=== PATIENT | male | born 1970 | race American Indian/Alaskan Native ===

== ENCOUNTER 2018-08-15 18:24 | Emergency (ER) | payer OTHER ==
[2018-08-15] MEDS ORDERED: ASPIRIN PO ONE ×2 (18:54→19:48)
[2018-08-15 19:13] LABS: Basophils % (Auto) 0.3 % (0.0-1.8); Hematocrit 40.7 % (35.5-45.6); Hemoglobin 13.9 gm/dl (11.8-15.2); Lymphocytes # (Auto) 2.5 K/mm3 (1.2-5.4); Lymphocytes % (Auto) 16.6 % (13.4-35.0); Mean Corpuscular HGB Conc 34 % (32-34); Mean Corpuscular Volume 81 fl (84-94); Platelet Count 359 K/mm3 (140-440); Red Blood Count 5.04 M/mm3 (3.65-5.03); Red Cell Distribution Width 13.9 % (13.2-15.2)
[2018-08-15] MEDS ORDERED: NORCO 5/325 PO ONE (19:48)
[2018-08-15 20:00] LABS: BUN/Creatinine Ratio 9; Blood Urea Nitrogen 8 mg/dL (9-20); Calcium 8.6 mg/dL (8.4-10.2); Hemolysis Index 75
[2018-08-15 20:12] LABS: Bilirubin,Urine NEG (Negative); Blood,Urine MOD (Negative); Color,Urine Yellow (Yellow); Mucus,Urine FEW /HPF; Protein,Urine <15 mg/dL mg/dL (Negative)
[2018-08-15 20:14] LABS: Alanine Aminotransferase 28 units/L (7-56); Albumin 4.2 g/dL (3.9-5); BUN/Creatinine Ratio 9; Blood Urea Nitrogen 8 mg/dL (9-20); Calcium 8.7 mg/dL (8.4-10.2); Hemolysis Index 74
[2018-08-15 20:18] LABS: INR 1.03 (0.87-1.13); Partial Thromboplastin Time 26.5 Sec. (24.2-36.6)
[2018-08-15] MEDS ORDERED: NACL 0.9% 1000 ML 1,000 ML IV ONE ×2 (20:20→20:21)
[2018-08-15] MEDS ORDERED: ZOSYN/NS 3.375GM/50ML 3.375 GM/50 ML BAG IV ONE (20:40)
--- NOTE | 2018-08-15 20:44 | Emergency Department Report ---
ED Abdominal Pain HPI - General Chief Complaint: Chest Pain Stated Complaint: RECENT SURGERY/SOB Time Seen by Provider: 08/15/18 19:44 Source: patient Mode of arrival: Ambulatory Limitations: No Limitations - History of Present Illness Initial Comments: Patient is 48 years old male with no significant past medical history. Patient had surgery today for his right fifth finger. Patient presented to the ER complaining of epigastric pain starting a few hours back associated with some burping. Patient denied any fever or chills. He also denied any nausea or vomiting. MD Complaint: abdominal pain -: This morning Location: epigastric Radiation: none Migration to: no migration Severity scale (0 -10): 3 Quality: sharp Associated Symptoms: denies other symptoms - Related Data Allergies Allergy/AdvReac Type Severity Reaction Status Date / Time No Known Allergies Allergy Unverified 08/15/18 18:53 ED Review of Systems ROS: Stated complaint: RECENT SURGERY/SOB Other details as noted in HPI Comment: All other systems reviewed and negative Constitutional: denies: chills, fever Respiratory: denies: cough, orthopnea, shortness of breath Cardiovascular: denies: chest pain, palpitations, dyspnea on exertion Gastrointestinal: abdominal pain. denies: nausea, vomiting, diarrhea, constipation, hematemesis, melena, hematochezia Neurological: denies: headache, weakness, numbness, paresthesias, confusion, abnormal gait ED Past Medical Hx - Past Medical History Previous Medical History?: No - Surgical History Past Surgical History?: Yes Additional Surgical History: Surgery to finger - Social History Smoking Status: Never Smoker Substance Use Type: None ED Physical Exam - General Limitations: No Limitations General appearance: alert, in no apparent distress - Head Head exam: Present: atraumatic, normocephalic, normal inspection - Eye Eye exam: Present: normal appearance - ENT ENT exam: Present: normal exam, normal orophraynx, mucous membranes moist - Neck Neck exam: Present: normal inspection, full ROM. Absent: tenderness, meningismus - Respiratory Respiratory exam: Present: normal lung sounds bilaterally. Absent: respiratory distress, wheezes, rales, rhonchi, stridor, chest wall tenderness, accessory muscle use, decreased breath sounds, prolonged expiratory - Cardiovascular Cardiovascular Exam: Present: regular rate, normal rhythm, normal heart sounds - GI/Abdominal GI/Abdominal exam: Present: soft, normal bowel sounds. Absent: distended, tenderness, guarding, rebound, rigid, organomegaly, mass, bruit, pulsatile mass, hernia - Extremities Exam Extremities exam: Present: normal inspection, full ROM, normal capillary refill. Absent: calf tenderness - Back Exam Back exam: Present: normal inspection, full ROM. Absent: tenderness, CVA tenderness (R), CVA tenderness (L), muscle spasm, paraspinal tenderness, vertebral tenderness, rash noted - Neurological Exam Neurological exam: Present: alert, oriented X3, CN II-XII intact, normal gait, reflexes normal - Skin Skin exam: Present: warm, intact, normal color ED Course Vital Signs 08/15/18 08/15/18 08/15/18 18:49 20:40 21:01 Temperature 97.5 F L 97.7 F Pulse Rate 90 86 Respiratory 20 25 H 27 H Rate Blood Pressure 161/77 138/80 Blood Pressure 138/80 [Left] O2 Sat by Pulse 97 98 99 Oximetry 08/16/18 00:00 Temperature Pulse Rate 95 H Respiratory 26 H Rate Blood Pressure 135/78 Blood Pressure [Left] O2 Sat by Pulse Oximetry ED Medical Decision Making - Lab Data Result diagrams: 08/15/18 19:00 08/15/18 23:21 - EKG Data -: EKG Interpreted by [facility] EKG shows normal: sinus rhythm Rate: normal - EKG Data Interpretation: no acute changes - Radiology Data Radiology results: report reviewed Referring Physician: NANDA ARIAS Patient Name: BEATRICE PAYAN Date of : 1970 Sex: Male Report Date: 2018-08-15 Report Status: Finalized Findings [address] [address] Cat Scan Report Signed Patient: BEATRICE PAYAN MR#: [id number] : 1970 Acct:[id number] Age/Sex: 48 / M ADM Date: 08/15/18 Loc: ED Attending Dr: Ordering Physician: NANDA ARIAS Date of Service: 08/15/18 Procedure(s): CT abdomen pelvis w con Accession Number(s): [id number] cc: NANDA ARIAS FINAL REPORT PROCEDURE: CT ABDOMEN PELVIS W CON TECHNIQUE: Computerized axial tomography of the abdomen and pelvis was performed after the IV injection of iodinated nonionic contrast. HISTORY: abdominal pain COMPARISON: No prior studies are available for comparison. FINDINGS: Liver, spleen, pancreas and adrenal glands are within normal limits. Bilateral kidneys demonstrate uniform enhancement without hydronephrosis. Aorta is of normal caliber. There is no free fluid or free air. Gallbladder is unremarkable. Small bowel loops are within normal li mits. Mild degree residual stool is noted. Appendix is unremarkable. There is evidence of a hiatal hernia with the thickened esophageal moore. Visualized thoracic esophagus is filled with fluid. Trace bilateral pleural effusions are noted. Vertebral height is normal. IMPRESSION: Hiatal hernia with fluid filled distal esophagus demonstrating thickened moore. Reflux esophagitis cannot be excluded. Trace bilateral pleural effusions Transcribed By: [facility] [place] Dictated By: CHIQUI ANTONIO Electronically Authenticated By: CHIQUI ANTONIO Signed Date/Time: 08/15/182309 DD/ 11 TD/TT: 08/15/182311 - Medical Decision Making Patient is 48 years old male with no significant past medical history. Patient had surgery today for his right fifth finger. Patient presented to the ER complaining of epigastric pain starting a few hours back associated with some burping. Patient denied any fever or chills. He also denied any nausea or vomiting. Patient pain is managed to the epigastric area. CT abdomen and pelvis show a hiatal hernia with reflux esophagitis. The appendix is normal. EKG is unremarkable. Troponin is negative. Patient stated that he is feeling much better after the GI cocktail. I believe patient has symptoms is most likely related to the esophagitis and hiatal hernia since he is burping a lot. I advised patient to follow up with his primary care physician in the next 2-3 days. Will start patient on ciprofloxacin, Flagyl and Nexium. Critical care attestation.: If time is entered above; I have spent that time in minutes in the direct care of this critically ill patient, excluding procedure time. ED Disposition Clinical Impression: Abdominal pain, Hiatal hernia with GERD and esophagitis, Hyponatremia Disposition: TO HOME OR SELFCARE Is pt being admited?: No Condition: Stable Instructions: Hiatal Hernia (ED), Diet for Ulcers and Gastritis (ED), Hyponatremia (ED) Referrals: PRIMARY CARE, [Referring] - 3-5 Days
--- NOTE | 2018-08-15 21:52 | XRay Report ---
FINAL REPORT PROCEDURE: XR CHEST ROUTINE one-view TECHNIQUE: Chest radiograph anteroposterior view. CPT 66174 HISTORY: SOB COMPARISON: No prior studies are available for comparison. FINDINGS: Heart: Normal. Mediastinum/Vessels: Normal. Lungs/Pleural space: No infiltrate, effusion, or pneumothorax. Bony thorax: No acute osseous abnormality. Life support devices: None. IMPRESSION: No radiographic evidence of acute cardiopulmonary abnormality.
--- NOTE | 2018-08-15 23:10 | Cat Scan Report ---
FINAL REPORT PROCEDURE: CT ABDOMEN PELVIS W CON TECHNIQUE: Computerized axial tomography of the abdomen and pelvis was performed after the IV inject ion of iodinated nonionic contrast. HISTORY: abdominal pain COMPARISON: No prior studies are available for comparison. FINDINGS: Liver, spleen, pancreas and adrenal glands are within normal limits. Bilateral kidneys demonstrate un iform enhancement without hydronephrosis. Aorta is of normal caliber. There is no free fluid or free air. Gallbladder is unremarkable. Small bowel loops are within normal limits. Mild degree residual st ool is noted. Appendix is unremarkable. There is evidence of a hiatal hernia with the thickened esoph ageal moore. Visualized thoracic esophagus is filled with fluid. Trace bilateral pleural effusions ar e noted. Vertebral height is normal. IMPRESSION: Hiatal hernia with fluid filled distal esophagus demonstrating thickened moore. Reflux esophagitis ca nnot be excluded. Trace bilateral pleural effusions
[2018-08-15] MEDS ORDERED: PROTONIX IV ONE (23:14)
[2018-08-15] MEDS ORDERED: ALUM-MAG HYDROX-SIMETH 200-200-20MG/5ML PO ONE (23:14)
[2018-08-15] MEDS ORDERED: LIDOCAINE VISCOUS 2% PO ONE (23:14)
[2018-08-15] MEDS ORDERED: NACL 0.9% 1000 ML 1,000 ML ONE (23:28)
[2018-08-16 00:11] VITALS: BP 135/78
[2018-08-16 00:13] LABS: BUN/Creatinine Ratio 9; Blood Urea Nitrogen 8 mg/dL (9-20); Calcium 8.2 mg/dL (8.4-10.2); Hemolysis Index 7
== END 2018-08-16 01:02 | disposition home or self-care (01) ==
LOC: ED 18:24
DX: K21.0 Gastro-esophageal reflux disease with esophagitis (principal); K44.9 Diaphragmatic hernia without obstruction or gangrene; E87.1 Hypo-osmolality and hyponatremia
CPT/HCPCS: 36415; 71046; 74177; 80048; 80053; 81001; 83690; 84484; 85025; 85610; 85730; 93005; 93010; 96365; 96375; 99285; C9113; J2543; J7030; Q9967